=== PATIENT | female | born 1985 | race Caucasian/White ===

== ENCOUNTER 2016-08-23 09:54 | Emergency (ER) | payer BC, OTHER ==
[2016-08-23 09:59] VITALS: BP 122/77
[2016-08-23] MEDS ORDERED: Tenofovir/Emtricitabine(*) TAB PO ONE (10:57)
[2016-08-23] MEDS ORDERED: Raltegravir* 400 MG TAB PO ONE (10:57)
--- NOTE | 2016-08-23 11:20 | ED ---
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 She was double gloved and working with "pop off" needles when one of the needles penetrated her gloves and abraided her left middle finger. She poured Betadine over the finger and then scrubbed the digit after the surgery was complete. The patient is known Hep C+ and is an IV drug user. The patient's tetanus is up to date and she did not see blood in her glove from the incident. - History of Current Complaint Chief Complaint: EDExposureBodyFluid Stated Complaint: NEEDLE STICK Time Seen by Provider: 08/23/16 10:11 Date of Incident: 08/23/16 Job Performing at Time of Incident: O.R. scrub Mechanism of Injury: solid needle abrasion Needlestick: Solid Needle Blood on Needle: Yes Depth of Needlestick: Scratch Depth: superficial Bleeding at Site: No Body Fluid Exposure: Blood Treatment BRICK SETTER: Cleaned Wound - Source Information HIV: Unknown Hepatitis: Yes - Risk Factors Needlestick Risk Factor: Low Risk: Superficial Scratch - Other Discussed Post-Exposure prophylaxis (PEP) for HIV: Accepted Discussed PEP for Hepatitis-B: Declined Serologic Testing (HIV/HBV) Declined by Patient: No (Must be retained for 90 days, if drawn) PMH/Surg Hx/FS Hx/Imm Hx Previously Healthy: Yes Endocrine/Hematology History: Denies: Hx Diabetes, Hx Thyroid Disease Cardiovascular History: Denies: Hx Hypertension Respiratory History: Denies: Hx Asthma, Hx Chronic Obstructive Pulmonary Disease (COPD) GI History: Denies: Hx Ulcer - Surgical History Surgery Procedure, Year, and Place: gallbladder. tonisils. left knee arthroscopy x2 Infectious Disease History: No Infectious Disease History: Denies: Hx Clostridium Difficile, Hx Hepatitis, Hx Human Immunodeficiency Virus (HIV), Hx of Known/Suspected MRSA, Hx Shingles, Hx Tuberculosis, Hx Known/ Suspected VRE, Hx Known/Suspected VRSA, History Other Infectious Disease, Traveled Outside the [place] in Last 30 Days - Family History Known Family History: Positive: Diabetes - Type 1 and 2 Negative: Cardiac Disease, Hypertension - Social History Occupation: Employed Full-time Lives: With Family Alcohol Use: Weekly Alcohol Amount: 2-3x's weekly Substance Use Type: Reports: None Smoking Status (MU): Never Smoked Tobacco Have You Smoked in the Last Year: No Review of Systems Positive: Other - superficial abrasion to left middle finger All Other Systems Reviewed And Are Negative: Yes Physical Exam Triage Information Reviewed: Yes Vital Signs On Initial Exam: Initial Vitals Temp Pulse Resp BP Pulse Ox 98.5 F 72 20 122/77 98 08/23/16 09:56 08/23/16 09:56 08/23/16 09:56 08/23/16 09:56 08/23/16 09:56 Vital Signs Reviewed: Yes Appearance: Positive: Well-Appearing, No Pain Distress, Well-Nourished Skin: Positive: Warm, Skin Color Reflects Adequate Perfusion, Dry, Soft, Other - superficial abrasion to dorsum of left middle finger at base of nailbed Head/Face: Positive: Normal Head/Face Inspection Eyes: Positive: EOMI, NATALIA, Conjunctiva Clear ENT: Positive: Hearing grossly normal Respiratory/Lung Sounds: Positive: Breath Sounds Present Cardiovascular: Positive: RRR Musculoskeletal: Positive: Strength/ROM Intact. Negative: Edema Left, Edema Right Neurological: Positive: Sensory/Motor Intact, Alert, Oriented to Person Place, Time, NV Bundle Intact Distally, Normal Gait Psychiatric: Positive: Affect/Mood Appropriate AVPU Assessment: Alert Diagnostics - Vital Signs Vital Signs Temp Pulse Resp BP Pulse Ox 08/23/16 09:56 98.5 F 72 20 122/77 98 - Laboratory Lab Statement: Any lab studies that have been ordered have been reviewed, and results considered in the medical decision making process. Needlestick Course/Dx - Diagnoses Provider Diagnoses: Employee exposure to body fluids Discharge - Discharge Plan Condition: Stable Disposition: HOME Prescriptions: Raltegravir* [Isentress*] 400 mg PO BID #42 tab Tenofovir/Emtricitabine(*) [Truvada*] 1 tab PO DAILY #21 tab Patient Education Materials: Postexposure Prophylaxis (ED), Raltegravir (By mouth), Emtricitabine/Tenofovir (By mouth) Referrals: [facility] [Outside] Additional Instructions: Please call Marya Coats at [phone] for employee health guidance. Your blood work should be back in two days. If you do not hear from the emergency department, please call for lab results. Take your medication as prescribed.
[2016-08-23 11:35] LABS: Hematocrit 40 % (35-47); Hemoglobin 13.5 g/dl (12.0-16.0); Mean Corpuscular HGB Conc 34 g/dl (31-36); Mean Corpuscular Hemoglobin 30 pg (27-31); Mean Corpuscular Volume 88 fL (80-97); Mean Platelet Volume 8 um3 (7.4-10.4); Red Blood Count 4.55 10^6/ul (4.0-5.4); Red Cell Distribution Width 13 % (10.5-15); White Blood Count 10.6 10^3/ul (3.5-10.8)
[2016-08-23 11:51] LABS: ALT 15 U/L (7-52); AST 20 U/L (13-39); Albumin 4.6 g/dL (3.2-5.2); Alkaline Phosphatase 46 U/L (34-104); Anion Gap 7 mmol/L (2-11); BUN/Creatinine Ratio 14.8 (8-20); Blood Urea Nitrogen 12 mg/dL (6-24); CO2 Carbon Dioxide 27 mmol/L (22-32); Chloride 103 mmol/L (101-111); EGFR African American 107.5 (>60); EGFR Non-African American 83.6 (>60); Glucose 93 mg/dL (70-100); Potassium 3.8 mmol/L (3.5-5.0); Sodium 137 mmol/L (133-145); Total Protein 7.6 g/dL (6.4-8.9)
[2016-08-23 12:12] LABS: Rapid HIV INT CONT QC Line Present; Rapid HIV Kit Lot# F209005
== END 2016-08-23 11:30 | disposition home or self-care (01) ==
LOC: ED 09:54
DX: S60.413A Abrasion of left middle finger, initial encounter (principal); Z77.21 Contact with and (suspected) exposure to potentially hazardous body fluids; W46.1XXA Contact with contaminated hypodermic needle, initial encounter; Y93.9 Activity, unspecified; Y92.234 Operating room of hospital as the place of occurrence of the external cause
CPT/HCPCS: 36415; 80053; 84702; 85025; 86703; 86706; 86803; 87340; 99284

== ENCOUNTER 2016-12-22 11:43 | Emergency (ER) | payer BC ==
[2016-12-22 11:48] VITALS: BP 121/70
--- NOTE | 2016-12-22 12:35 | UC ---
Respiratory Complaint HPI - HPI Summary HPI Summary: TAKES ALBUTEROL FOR ASTHMA, HAS BAD SEVERAL DAYS OF COUGH, WHICH IS TRIGGERING ASTHMA. INHALER IS NOT WORKING, HAS BAD WHEEZING BOUT THIS MORNING. - History of Current Complaint Hx Obtained From: Patient Hx Last Menstrual Period: 11/18/16 Onset/Duration: Gradual Onset, Lasting Days, Worse Since - THIS AM Severity Initially: Mild Severity Currently: Mild Pain Intensity: 0 Pain Scale Used: 0-10 Numeric Character: Cough: Nonproductive Associated Signs And Symptoms: Positive: Wheezing, URI. Negative: Fever, Chills , Calf Pain, Calf Swelling, Nasal Congestion, Hoarseness, Sinus Discomfort - Risk Factors Pulmonary Embolism Risk Factors: Negative Cardiac Risk Factors: Negative Pseudomonas Risk Factors: Negative Tuberculosis Risk Factors: Negative <Bebeto Costa - Last Filed: 12/22/16 12:30> <Kaykay Nation - Last Filed: 12/22/16 12:41> - History of Current Complaint Chief Complaint: UCRespiratory Stated Complaint: SOB Time Seen by Provider: 12/22/16 12:06 - Allergies/Home Medications Allergies/Adverse Reactions: Allergies Allergy/AdvReac Type Severity Reaction Status Date / Time No Known Allergies Allergy Verified 05/01/16 14:19 PMH/Surg Hx/FS Hx/Imm Hx Previously Healthy: Yes - Surgical History Surgical History: None Surgery Procedure, Year, and Place: gallbladder. tonisils. left knee arthroscopy x2 - Family History Known Family History: Positive: Diabetes - Type 1 and 2 Negative: Cardiac Disease, Hypertension - Social History Alcohol Use: Weekly Alcohol Amount: 2-3x's weekly Substance Use Type: None Smoking Status (MU): Never Smoked Tobacco Have You Smoked in the Last Year: No Household Exposure Type: Cigarettes - Immunization History Most Recent Influenza Vaccination: 2016 Most Recent Tetanus Shot: up to date Most Recent Pneumonia Vaccination: never <Bebeto Costa - Last Filed: 12/22/16 12:30> Review of Systems Constitutional: Negative Skin: Negative Eyes: Negative ENT: Negative Respiratory: Cough Cardiovascular: Negative Gastrointestinal: Negative Genitourinary: Negative Motor: Negative Neurovascular: Negative Musculoskeletal: Negative Neurological: Negative Psychological: Negative All Other Systems Reviewed And Are Negative: Yes <Bebeto Costa - Last Filed: 12/22/16 12:30> Physical Exam Triage Information Reviewed: Yes Appearance: Well-Appearing, No Pain Distress, Well-Nourished Vital Signs: Initial Vital Signs Temp 98 F 12/22/16 11:45 Pulse 71 12/22/16 11:45 Resp 18 12/22/16 11:45 BP 121/70 12/22/16 11:45 Pulse Ox 100 12/22/16 11:45 Vital Signs Reviewed: Yes Eye Exam: Normal ENT Exam: Normal ENT: Positive: Normal ENT inspection, Hearing grossly normal Dental Exam: Normal Neck exam: Normal Neck: Positive: Supple, Nontender, No Lymphadenopathy Respiratory Exam: Other - COUGH Respiratory: Positive: Chest non-tender, Lungs clear, Normal breath sounds, No respiratory distress, No accessory muscle use. Negative: Wheezing - NO WHEEZING AUSCULTATED DURING CLINICAL EXAM Cardiovascular Exam: Normal Cardiovascular: Positive: RRR, No Murmur, Pulses Normal, Brisk Capillary Refill Abdominal Exam: Normal Musculoskeletal Exam: Normal Neurological Exam: Normal Psychological Exam: Normal Skin Exam: Normal <Bebeto Costa - Last Filed: 12/22/16 12:30> Vital Signs: Initial Vital Signs Temp 98 F 12/22/16 11:45 Pulse 71 12/22/16 11:45 Resp 18 12/22/16 11:45 BP 121/70 12/22/16 11:45 Pulse Ox 100 12/22/16 11:45 <Kaykay Nation - Last Filed: 12/22/16 12:41> Diagnostic Evaluation - Laboratory O2 Sat by Pulse Oximetry: 100 <Bebeto Costa - Last Filed: 12/22/16 12:30> Respiratory Course/Dx - Differential Dx/Diagnosis Differential Diagnosis/HQI/PQRI: Bronchitis, Sinusitis, Tuberculosis Provider Diagnoses: BRONCHITIS WITH BRONCHOSPASM <Bebeto Costa - Last Filed: 12/22/16 12:30> Discharge <Bebeto Costa - Last Filed: 12/22/16 12:30> <Kaykay Nation - Last Filed: 12/22/16 12:41> - Discharge Plan Condition: Stable Disposition: HOME Prescriptions: predniSONE TAB* [Deltasone TAB*] 10 mg PO DAILY #28 tab Patient Education Materials: Acute Bronchitis (ED), Bronchospasm (ED) Referrals: [facility] [Outside] No Primary Care Phys,NOPCP [Primary Care Provider] - Attestation Statement User Type: Provider - I was available for consult. This patient was seen by the SARAH. The patient was not presented to, seen by, or examined by me. -Malou <Kaykay Nation - Last Filed: 12/22/16 12:41>
== END 2016-12-22 12:23 | disposition home or self-care (01) ==
LOC: UCEAST 11:43
DX: J20.9 Acute bronchitis, unspecified (principal); Z90.49 Acquired absence of other specified parts of digestive tract; Z77.22 Contact with and (suspected) exposure to environmental tobacco smoke (acute) (chronic)
CPT/HCPCS: 99212; G0463

== ENCOUNTER 2017-02-06 13:56 | Emergency (ER) | payer BC ==
[2017-02-06 14:49] VITALS: BP 127/71
--- NOTE | 2017-02-06 15:01 | UC ---
Skin Complaint HPI - HPI Summary HPI Summary: 31 y/o female with rash x 2 days after being in a hot tub. no recent travel, no new meds/ soaps/ exposures. no other s/s. c/o painful, raised rash over abdomen/ legs. follicular pattern, no fever, chills, ACOSTA. pt has had symptoms in past after being in hot tub >1 year ago, no recent abx. has tried topical antibacterial meds- no relief. - History of Current Complaint Hx Obtained From: Patient Hx Last Menstrual Period: ~01/18/17 ?: No Onset/Duration: Sudden Onset Skin Exposure Onset/Duration: Days Ago - 2 days Onset Severity: Mild Current Severity: Moderate Location: Diffuse - legs, abdomen/ back Character: Pain, Redness, Raised, Painful Aggravating: Clothing Associated Signs & Symptoms: Positive: Rash, Tenderness <Veena Arroyo - Last Filed: 02/06/17 15:05> <Kaykay Nation - Last Filed: 02/06/17 16:12> - History of Current Complaint Chief Complaint: UCRash Time Seen by Provider: 02/06/17 14:49 Stated Complaint: SKIN COMPLAINT - Allergy/Home Medications Allergies/Adverse Reactions: Allergies Allergy/AdvReac Type Severity Reaction Status Date / Time No Known Allergies Allergy Verified 02/06/17 14:45 Home Medications: Home Medications Esomeprazole(NF) [Nexium(NF)] 40 mg PO QAM 02/06/17 [History Confirmed 02/06/17] Ranitidine TAB (NF) [Zantac TAB (NF)] 150 mg PO QAM 02/06/17 [History Confirmed 02/06/17] Review of Systems Skin: Rash All Other Systems Reviewed And Are Negative: Yes <Veena Arroyo - Last Filed: 02/06/17 15:05> PMH/Surg Hx/FS Hx/Imm Hx Previously Healthy: Yes - Surgical History Surgical History: Yes Surgery Procedure, Year, and Place: gallbladder. tonisils. left knee arthroscopy x2 - Family History Known Family History: Positive: Diabetes - Type 1 and 2 Negative: Cardiac Disease, Hypertension - Social History Alcohol Use: Weekly Alcohol Amount: 2-3x's weekly Substance Use Type: None Smoking Status (MU): Never Smoked Tobacco Have You Smoked in the Last Year: No Household Exposure Type: Cigarettes - Immunization History Most Recent Influenza Vaccination: 2015 Most Recent Tetanus Shot: up to date Most Recent Pneumonia Vaccination: never <CruzVeena - Last Filed: 02/06/17 15:05> Physical Exam Triage Information Reviewed: Yes Appearance: Well-Appearing, No Pain Distress, Well-Nourished Vital Signs: Initial Vital Signs Temp 98.7 F 02/06/17 14:42 Pulse 68 02/06/17 14:42 Resp 16 02/06/17 14:42 BP 127/71 02/06/17 14:42 Pulse Ox 100 02/06/17 14:42 Vital Signs Reviewed: Yes Skin: Positive: rashes - raised papules in a follicular pattern with erythema over abdomen, back, legs. tender to touch, no drainge noted. no burrowing/ bites noted. <Veena Arroyo - Last Filed: 02/06/17 15:05> Vital Signs: Initial Vital Signs Temp 98.7 F 02/06/17 14:42 Pulse 68 02/06/17 14:42 Resp 16 02/06/17 14:42 BP 127/71 02/06/17 14:42 Pulse Ox 100 02/06/17 14:42 <Kaykay Nation - Last Filed: 02/06/17 16:12> Course/Dx - Course Course Of Treatment: folliculitis refractory to OTC topical antibiotic medication. ABX given, continue topical antibiotics, avoid hottubs, return with worsening symptoms. - Differential Diagnoses - Skin Complaint Differential Diagnoses: Cellulitis, Contact Dermatitis, Drug Rash, Eczema - Diagnoses Provider Diagnoses: folliculitis bacterical. <Veena Arroyo - Last Filed: 02/06/17 15:05> Discharge <Veena Arroyo - Last Filed: 02/06/17 15:05> <Kaykay Nation - Last Filed: 02/06/17 16:12> - Discharge Plan Condition: Good Disposition: HOME Prescriptions: Cephalexin CAP* [Keflex 500 CAP*] 500 mg PO QID #40 cap Fluconazole 150 MG (NF) [Diflucan 150 mg (NF)] 150 mg PO ONCE #1 tab Patient Education Materials: Folliculitis (ED) Referrals: No Primary Care Phys,NOPCP [Medical Doctor] - Additional Instructions: - kelfex as prescribed for folliculitis - avoid hot tubs - diflucan as needed for yeast infection - follow up within 2-3 days if no improvement - avoid hydrocortisone creams Attestation Statement User Type: Provider - I was available for consult. This patient was seen by the SARAH. The patient was not presented to, seen by, or examined by me. -Malou <Kaykay Nation - Last Filed: 02/06/17 16:12>
== END 2017-02-06 15:05 | disposition home or self-care (01) ==
LOC: UCCORT 13:56
DX: L73.8 Other specified follicular disorders (principal); Z90.49 Acquired absence of other specified parts of digestive tract; Z77.22 Contact with and (suspected) exposure to environmental tobacco smoke (acute) (chronic)
CPT/HCPCS: 99212; G0463

== ENCOUNTER 2017-10-11 07:05 | Emergency (ER) | payer BC, OTHER ==
[2017-10-11 07:28] VITALS: BP 117/69
--- NOTE | 2017-10-11 07:39 | UC ---
Respiratory Complaint HPI - HPI Summary HPI Summary: 31 yo femal ill>1 week sinus congestion cough now wheezing sore throat uvula swollen today - History of Current Complaint Chief Complaint: UCRespiratory Stated Complaint: SORE THROAT Time Seen by Provider: 10/11/17 07:31 Hx Obtained From: Patient Hx Last Menstrual Period: 09/13/17 Onset/Duration: Gradual Onset, Lasting Days Timing: Constant Severity Initially: Mild Severity Currently: Moderate Pain Intensity: 7 Pain Scale Used: 0-10 Numeric Character: Cough: Nonproductive Aggravating Factors: Nothing Associated Signs And Symptoms: Positive: Fever, Wheezing, Nasal Congestion, Sinus Discomfort - Allergies/Home Medications Allergies/Adverse Reactions: Allergies Allergy/AdvReac Type Severity Reaction Status Date / Time seasonal allergies Allergy Unknown Unknown Uncoded 10/11/17 07:17 Reaction Details Home Medications: Home Medications Acetaminophen [Tylenol Extra Strength] 1,000 mg PO PRN 10/11/17 [History] Ibuprofen TAB* [Advil TAB*] 1,000 mg PO Q6H PRN 10/11/17 [History Confirmed 06/18] PMH/Surg Hx/FS Hx/Imm Hx Previously Healthy: Yes Respiratory History: Asthma - Surgical History Surgical History: Yes Surgery Procedure, Year, and Place: gallbladder. tonisils. left knee arthroscopy x2. DENTAL SURGERY. UPPER ENDOSCOPY TWICE - Family History Known Family History: Positive: Diabetes - Type 1 and 2, Respiratory Disease Negative: Cardiac Disease, Hypertension - Social History Alcohol Use: Rare Alcohol Amount: 2-3x's weekly Substance Use Type: None Smoking Status (MU): Never Smoked Tobacco Have You Smoked in the Last Year: No Household Exposure Type: Cigarettes - Immunization History Most Recent Influenza Vaccination: 2016 Most Recent Tetanus Shot: up to date Most Recent Pneumonia Vaccination: never Review of Systems Constitutional: Fever, Chills Skin: Negative Eyes: Negative ENT: Sore Throat, Ear Ache, Nasal Discharge, Sinus Congestion Respiratory: Cough Cardiovascular: Negative Gastrointestinal: Negative Genitourinary: Negative Motor: Negative Neurovascular: Negative Musculoskeletal: Negative Neurological: Negative Psychological: Negative Is Patient Immunocompromised?: No All Other Systems Reviewed And Are Negative: Yes Physical Exam Triage Information Reviewed: Yes Appearance: Well-Appearing, No Pain Distress, Well-Nourished Vital Signs: Initial Vital Signs Temp 98.2 F 10/11/17 07:20 Pulse 62 10/11/17 07:20 Resp 24 10/11/17 07:20 BP 117/69 10/11/17 07:20 Pulse Ox 98 10/11/17 07:20 Vital Signs Reviewed: Yes Eyes: Positive: Conjunctiva Clear ENT: Positive: Hearing grossly normal, Pharyngeal erythema, Nasal congestion, TMs normal, Hoarse voice, Uvula midline - edematous. Negative: Trismus, Muffled voice Neck: Positive: Supple, Nontender, No Lymphadenopathy Respiratory: Positive: Lungs clear, Normal breath sounds, No respiratory distress, No accessory muscle use Cardiovascular: Positive: RRR, No Murmur Neurological: Positive: Alert Psychological Exam: Normal Skin Exam: Normal UC Diagnostic Evaluation - Laboratory O2 Sat by Pulse Oximetry: 98 Respiratory Course/Dx - Course Course Of Treatment: strep (-) - Differential Dx/Diagnosis Provider Diagnoses: sinusitis. uvular edema. wheezing by history Discharge - Sign-Out/Discharge Documenting (check all that apply): Discharge - Discharge Plan Condition: Stable Disposition: HOME Prescriptions: Albuterol HFA INHALER* [Ventolin HFA Inhaler*] 2 puff INH QID #1 mdi Amoxicillin PO (*) [Amoxicillin 875 MG (*)] 875 mg PO BID #20 tab predniSONE [Deltasone] 40 mg PO DAILY #10 tab Patient Education Materials: Sinusitis (ED), Bronchospasm (ED) Referrals: No Primary Care Phys,NOPCP [Primary Care Provider] - Additional Instructions: recheck for new or worsening symptoms strep (-) recheck in 4-6 days if not better - Billing Disposition and Condition Condition: STABLE Disposition: HOME
== END 2017-10-11 07:56 | disposition home or self-care (01) ==
LOC: UCCORT 07:05
DX: J32.9 Chronic sinusitis, unspecified (principal); J39.8 Other specified diseases of upper respiratory tract; R06.2 Wheezing
CPT/HCPCS: 87651; 99212; G0463

== ENCOUNTER 2018-02-08 19:10 | Emergency (ER) | payer BC ==
[2018-02-08 19:55] VITALS: BP 140/79
--- NOTE | 2018-02-08 21:02 | UC ---
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 today woke with ear pressure and pain as well as dizziness. sinus pressure has gotten worse " -she had sinsuitis in 10/17 treated completly w/ amox 875mgs bid x 10d. sues cetirizine and flonase daily w/ saline lavage. dx'd w/ asthma 2 yrs ago. never required steroids or steroid inhaler. uses albuterol. gerd contributes to asthma. - History of Current Complaint Chief Complaint: UCGeneralIllness Stated Complaint: SINUSES Time Seen by Provider: 02/08/18 20:59 Hx Last Menstrual Period: 01/25/18 Pain Intensity: 6 - Allergies/Home Medications Allergies/Adverse Reactions: Allergies Allergy/AdvReac Type Severity Reaction Status Date / Time seasonal allergies Allergy Unknown Unknown Uncoded 02/08/18 20:18 Reaction Details Home Medications: Home Medications Cetirizine HCl [Zyrtec] 10 mg PO DAILY 02/08/18 [History Confirmed 02/08/18] Fluticasone NASAL SPRAY 50MCG* [Flonase NASAL SPRAY 50MCG*] 1 spray INH DAILY [History Confirmed 02/08/18] Guaifenesin/Dextromethorphan [Mucinex Dm ER 600-30 mg Tablet] 1 each PO Q12HR [History Confirmed 02/08/18] Vitamin B Complex CAP* [B Complex CAP*] 1 each PO DAILY 02/08/18 [History Confirmed 02/08/18] PMH/Surg Hx/FS Hx/Imm Hx Previously Healthy: Yes Respiratory History: Asthma GI/ History: Gastroesophageal Reflux - Surgical History Surgical History: Yes Surgery Procedure, Year, and Place: gallbladder. tonisils. left knee arthroscopy x2. DENTAL SURGERY. UPPER ENDOSCOPY TWICE - Family History Known Family History: Positive: Diabetes - Type 1 and 2, Respiratory Disease - + asthma dad and GM Negative: Cardiac Disease, Hypertension - Social History Alcohol Use: Occasionally Alcohol Amount: 2-3x's weekly Substance Use Type: None Smoking Status (MU): Never Smoked Tobacco Have You Smoked in the Last Year: No Household Exposure Type: Cigarettes - Immunization History Most Recent Influenza Vaccination: 2016 Most Recent Tetanus Shot: up to date Most Recent Pneumonia Vaccination: never Review of Systems Constitutional: Fatigue Skin: Negative Eyes: Negative ENT: Sinus Congestion, Sinus Pain/Tenderness Respiratory: Cough Cardiovascular: Negative Gastrointestinal: Negative Genitourinary: Negative Motor: Negative Neurovascular: Negative Musculoskeletal: Negative Neurological: Negative Psychological: Negative Is Patient Immunocompromised?: No All Other Systems Reviewed And Are Negative: Yes Physical Exam Triage Information Reviewed: Yes Appearance: Well-Appearing, No Pain Distress, Well-Nourished Vital Signs: Initial Vital Signs Temp 98.3 F 02/08/18 19:49 Pulse 75 02/08/18 19:49 Resp 16 02/08/18 19:49 BP 140/79 02/08/18 19:49 Pulse Ox 100 02/08/18 19:49 Vital Signs Reviewed: Yes Eye Exam: Normal Eyes: Positive: Conjunctiva Clear ENT: Positive: Pharyngeal erythema - mild w/ PND, TMs normal, Sinus tenderness. Negative: Tonsillar swelling, Tonsillar exudate Neck exam: Normal Neck: Positive: Supple, Nontender, No Lymphadenopathy Respiratory: Positive: Lungs clear, No respiratory distress, No accessory muscle use, Decreased breath sounds - mild. Negative: Crackles, Rhonchi, Stridor, Wheezing Cardiovascular Exam: Normal Cardiovascular: Positive: RRR Abdomen Description: Positive: Nontender, Soft Musculoskeletal Exam: Normal Neurological Exam: Normal Psychological Exam: Normal Throat Pain/Nasal Course/Dx - Course Course Of Treatment: -amox 875mgs po bid x10d. -cont probiotic. -cont cetirizine, flonase and saline lavage. -alb prn. -add symbicort 80 mcg 2 p bid until sx resolved. risne mouth after - Differential Dx/Diagnosis Differential Diagnosis/HQI/PQRI: Sinusitis, Tonsillitis, URI Provider Diagnoses: sinusitis, asthma Discharge - Sign-Out/Discharge Documenting (check all that apply): Patient Departure - Discharge Plan Condition: Stable Disposition: HOME Prescriptions: Amoxicillin PO (*) [Amoxicillin 875 MG (*)] 875 mg PO BID #20 tab Budesonide/Formote 80/4.5(NF) [Symbicort 80/4.5 (NF)] 2 puff INH BID 14 Days #1 mdi Patient Education Materials: Asthma (DC), Sinusitis (ED) Referrals: No Primary Care Phys,NOPCP [Primary Care Provider] - Additional Instructions: -Make sure to take a probiotic daily while on antibiotics to help prevent a potential complication of antibiotic use called c diff. Some well known brands that can be found OTC are florastor, align and colon health. Make sure to complete the entire prescription unless advised otherwise by your health care provider. - - Billing Disposition and Condition Condition: STABLE Disposition: Home
== END 2018-02-08 21:22 | disposition home or self-care (01) ==
LOC: UCCORT 19:10
DX: J32.9 Chronic sinusitis, unspecified (principal); J45.909 Unspecified asthma, uncomplicated
CPT/HCPCS: 99212; G0463

== ENCOUNTER 2018-05-24 19:19 | Emergency (ER) | payer BC ==
--- NOTE | 2018-05-24 19:42 | UC ---
Respiratory Complaint HPI - HPI Summary HPI Summary: Unwell for the past 6 days, with initial vomiting and diarrhea after eating sushi prepared at home. No one else partaking was ill, assumed was related to volume and type of food. One episode of emesis, followed by about 4 episodes of diarrhea without blood or mucous associated. Had abdominal cramping and took a single dose of imodium. [place] cramping and mildly unwell on 05/20, but overall thought improving. Morning of 05/21 had temp of 103 with headache, with gradual onset of sore throat. [place] progressively unwell, with worsening sore throat and development of cough. Clinical diagnosis of strep made yesterday based on purulent pharyngitis (past tonsillectomy), and began use of cefdinir 300mg twice daily. Has had 3 doses, with continued throat pain, harsh cough, malaise and dysphagia. Voiding well. No stool passed x several days. - History of Current Complaint Stated Complaint: SORE THROAT, COUGH, CONGESTION Time Seen by Provider: 05/24/18 19:39 Hx Obtained From: Patient Hx Last Menstrual Period: 01/25/18 ?: No Onset/Duration: Gradual Onset, Lasting Days Timing: Constant - sore throat and laryngeal discomfort are constant. Severity Initially: Moderate Severity Currently: Moderate Character: Cough: Nonproductive Aggravating Factors: Deep Breaths, Recumbent Position Alleviating Factors: Nothing Associated Signs And Symptoms: Positive: Fever, Sinus Discomfort - Risk Factors Pulmonary Embolism Risk Factors: Negative Cardiac Risk Factors: Negative Pseudomonas Risk Factors: Negative Tuberculosis Risk Factors: Negative - Allergies/Home Medications Allergies/Adverse Reactions: Allergies Allergy/AdvReac Type Severity Reaction Status Date / Time seasonal allergies Allergy Unknown Unknown Uncoded 05/24/18 19:42 Reaction Details Home Medications: Home Medications Budesonide/Formote 80/4.5(NF) [Symbicort 80/4.5 (NF)] 2 puff INH BID PRN [History] Cefdinir [Cefdinir 300 MG CAP] 300 mg PO BID 05/24/18 [History Confirmed ] Escitalopram (NF) [Lexapro 5 mg (NF)] 5 mg PO BEDTIME 05/24/18 [History Confirmed 05/24/18] LevoCETirizine TAB (NF) [Xyzal TAB (NF)] 5 mg PO DAILY 05/24/18 [History Confirmed 05/24/18] PMH/Surg Hx/FS Hx/Imm Hx Respiratory History: Asthma GI/ History: Gastroesophageal Reflux - Surgical History Surgical History: Yes Surgery Procedure, Year, and Place: gallbladder. tonisils. left knee arthroscopy x2. DENTAL SURGERY. UPPER ENDOSCOPY TWICE - Family History Known Family History: Positive: Diabetes - Type 1 and 2, Respiratory Disease - + asthma dad and GM Negative: Cardiac Disease, Hypertension - Social History Occupation: Employed Full-time Lives: Alone Alcohol Use: Occasionally Alcohol Amount: 2-3x's weekly Substance Use Type: None Smoking Status (MU): Never Smoked Tobacco Have You Smoked in the Last Year: No Household Exposure Type: Cigarettes - Immunization History Most Recent Influenza Vaccination: 2016 Most Recent Tetanus Shot: up to date Most Recent Pneumonia Vaccination: never Review of Systems All Other Systems Reviewed And Are Negative: Yes Constitutional: Positive: Fatigue Skin: Positive: Negative Eyes: Positive: Negative ENT: Positive: Sore Throat, Ear Ache, Sinus Congestion Respiratory: Positive: Cough Cardiovascular: Positive: Negative Gastrointestinal: Positive: Other - decrease in stool passage post imodium, but oral intake has been low. Genitourinary: Positive: Negative Motor: Positive: Negative Neurovascular: Positive: Negative Musculoskeletal: Positive: Negative Neurological: Positive: Headache Psychological: Positive: Negative Is Patient Immunocompromised?: No Physical Exam Triage Information Reviewed: Yes Appearance: Ill-Appearing - looks pale, fatigued and unwell, Pain Distress - mild to moderate. ENT: Positive: Pharyngeal erythema - Past tonsillectomy, but has bilateral swelling of the tonsillar bed with exudate. Soft palate erythematous., TM dull - bilateral serous fluid Neck: Positive: Supple, Nontender, Enlarged Nodes @ - tonsillar nodes enlarged. Respiratory: Positive: Lungs clear, Normal breath sounds, No accessory muscle use Cardiovascular: Positive: RRR, No Murmur Abdomen Description: Positive: Nontender, Soft - Mildly distended. Bowel Sounds: Positive: Present Musculoskeletal Exam: Normal Neurological: Positive: Alert, Muscle Tone Normal Psychological Exam: Normal Skin Exam: Normal Respiratory Course/Dx - Course Course Of Treatment: Clincal exam consistent with strep; pharyngeal swelling approached with injection of solumedrol. - Differential Dx/Diagnosis Differential Diagnosis/HQI/PQRI: Asthma, Laryngitis, Lower Resp Infection, Other - strep pharyngitis Provider Diagnoses: exudative pharyngitis, suspected strep Discharge - Sign-Out/Discharge Documenting (check all that apply): Patient Departure All imaging exams completed and their final reports reviewed: No Studies - Discharge Plan Condition: Stable Disposition: HOME Prescriptions: predniSONE [Prednisone 20 MG TAB] 2 tab PO DAILY WITH MEAL #10 tablet Patient Education Materials: Pharyngitis (ED) Forms: *Work Release Referrals: Aileen Naqvi NP [Primary Care Provider] - Additional Instructions: You have considerable swelling in the oral pharynx, presumed related to strep. The single dose of solumedrol is likely to be adequate to relieve this, but you have a back up prescription for oral prednisone. You need only take this if you have continues difficulty swallowing. If you have continued fatigue and swelling, I advocate off work tomorrow. You have an optional note. Your blood pressure is mildly elevated--ensure a follow up check of this within a few weeks. - Billing Disposition and Condition Condition: STABLE Disposition: Home
[2018-05-24 19:43] VITALS: BP 142/83
[2018-05-24] MEDS ORDERED: methylPREDNISolone 125 MG* 2 ML VIAL IM ONE (20:08)
== END 2018-05-24 20:55 | disposition home or self-care (01) ==
LOC: UCCORT 19:19
DX: J02.9 Acute pharyngitis, unspecified (principal); J45.909 Unspecified asthma, uncomplicated
CPT/HCPCS: 96372; 99212; G0463; J2930

== ENCOUNTER 2018-08-02 16:25 | Emergency (ER) | payer BC ==
[2018-08-02 17:09] VITALS: BP 126/68
[2018-08-02 17:19] LABS: Influenza A Molecular POSITIVE (Negative)
--- NOTE | 2018-08-02 17:29 | UC ---
FLU HPI - HPI Summary HPI Summary: 32 year old female present with nasal congestion, nasal discharge, sinus congestion, ear pain, and non-productive cough. States she has been having issues with her sinuses for a while howver symptoms have become more severe over the past 2-3 days. Denies fever, chills, chest pain, SOB, abdominal pain, nausea, or vomiting. - History of Current Complaint Chief Complaint: UCGeneralIllness Stated Complaint: SINUSES Hx Obtained From: Patient Hx Last Menstrual Period: 07/07/18 Pain Intensity: 4 - Allergy/Home Medications Allergies/Adverse Reactions: Allergies Allergy/AdvReac Type Severity Reaction Status Date / Time seasonal allergies Allergy Unknown Unknown Uncoded 05/24/18 19:42 Reaction Details Home Medications: Home Medications Ibuprofen/Pseudoephedrine HCl [Advil Cold-Sinus Liqui-Gels] 1 each PO Q8H [History Confirmed 08/02/18] Triamcinolone Acetonide [Nasal Allergy] 1 puff INH DAILY 08/02/18 [History Confirmed 08/02/18] diphenhydrAMINE HCl [Benadryl Allergy] 50 mg PO Q4H 08/02/18 [History Confirmed 08/02/18] PMH/Surg Hx/FS Hx/Imm Hx Previously Healthy: Yes Respiratory History: Asthma GI/ History: Gastroesophageal Reflux Psychological History: Depression - Surgical History Surgical History: Yes Surgery Procedure, Year, and Place: gallbladder. tonisils. left knee arthroscopy x2. DENTAL SURGERY. UPPER ENDOSCOPY TWICE - Family History Known Family History: Positive: Diabetes - Type 1 and 2, Respiratory Disease - + asthma dad and GM Negative: Cardiac Disease, Hypertension - Social History Occupation: Employed Full-time Lives: Alone Alcohol Use: Occasionally Alcohol Amount: 2-3x's weekly Substance Use Type: None Smoking Status (MU): Never Smoked Tobacco Have You Smoked in the Last Year: No Household Exposure Type: Cigarettes - Immunization History Most Recent Influenza Vaccination: 2016 Most Recent Tetanus Shot: up to date Most Recent Pneumonia Vaccination: never Review of Systems All Other Systems Reviewed And Are Negative: Yes Constitutional: Positive: Fatigue. Negative: Fever, Chills Skin: Negative: Rash Eyes: Negative: Drainage, Eye Redness ENT: Positive: Sore Throat, Ear Ache, Nasal Discharge, Sinus Congestion, Sinus Pain/Tenderness Respiratory: Positive: Cough. Negative: Shortness Of Breath Cardiovascular: Negative: Palpitations, Chest Pain Gastrointestinal: Negative: Abdominal Pain, Vomiting, Diarrhea, Nausea Genitourinary: Positive: Negative Musculoskeletal: Positive: Negative Neurological: Positive: Negative Is Patient Immunocompromised?: No Physical Exam - Summary Physical Exam Summary: GENERAL APPEARANCE: Well developed, well nourished, alert and cooperative, and appears to be in no acute distress. EYES: Conjunctiva clear. No discharge. Vision is grossly intact. EARS: External auditory canals and tympanic membranes clear, hearing grossly intact. NOSE: Moderate nasal discharge. Clear nasal drainage. THROAT: Mild pharyngeal erythema. No tonsilar inflammation, swelling, exudate, or lesions. Oral cavity normal. Teeth and gingiva in good general condition. NECK: Neck supple, non-tender without lymphadenopathy. CARDIAC: Normal S1 and S2. No S3, S4 or murmurs. Rhythm is regular. There is no peripheral edema, cyanosis or pallor. Extremities are warm and well perfused. Capillary refill is less than 2 seconds. LUNGS: Clear to auscultation without rales, rhonchi, wheezing or diminished breath sounds. ABDOMEN: Positive bowel sounds. Soft, nondistended, nontender. No guarding or rebound. No masses or hepatosplenomegally. MUSKULOSKELETAL: ROM intact to all extremities. No joint erythema or tenderness. Normal muscular development. Normal gait. SKIN: Skin normal color, texture and turgor with no lesions or eruptions. Vital Signs: Initial Vital Signs Temp 98.1 F 08/02/18 17:01 Pulse 96 08/02/18 17:01 Resp 16 08/02/18 17:01 BP 126/68 08/02/18 17:01 Pulse Ox 99 08/02/18 17:01 Diagnostics - Laboratory Diagnostic Studies Completed/Ordered: Rapid flu positive. Flu Course/Dx - Course Course Of Treatment: 32 year old female present with nasal congestion, nasal discharge, sinus congestion, ear pain, and non-productive cough. States she has been having issues with her sinuses for a while howver symptoms have become more severe over the past 2-3 days. Denies fever, chills, chest pain, SOB, abdominal pain, nausea, or vomiting. Afebrile. VSS. Exam reveals adult female in no acute distress with moderate nasal congestion, clear nasal discharged, mild pharyngeal erythema without tonsilar exudate, clear bilateral breath sounds , and a non-productive cough. Rapid flu positive for influenza A. Recommending symptomatic treatment. Anticipatory guidance and warning symptoms reviewed with patient. Verbalizes understanding and agrees with POC. - Differential Dx/Diagnosis Differential Diagnosis/HQI/PQRI: Bronchitis, Influenza, Pneumonia, Upper Respiratory Infection Provider Diagnosis: Influenza A Discharge - Sign-Out/Discharge Documenting (check all that apply): Patient Departure All imaging exams completed and their final reports reviewed: No Studies - Discharge Plan Condition: Stable Disposition: HOME Patient Education Materials: Influenza (ED) Forms: *Work Release Referrals: Aileen Naqvi THERMOMETER TESTER [Primary Care Provider] - 7 Days (If no improvement in symptoms.) Additional Instructions: Your flue test performed in the clinic today was positive for influenza A. Drink plenty of fluids to avoid dehydration especially if you are running any fever. Take over the counter acetaminophen (Tylenol) or ibuprofen (Advil, Motrin) according to directions as needed for pain or fever. Use salt water gargles several times a day if you have a sore throat. You may also use Chloraseptic spray or Cepacol lonzenges according to directions which contain a numbing medication and can provide some temporary relief from your sore throat. Follow up with your primary care provider in 7 days if symptoms persist. Seek immediate medical attention in the emergency room if you have fever greater than 100.5 F despite taking acetaminophen or ibuprofen, have chest pain , difficulty breathing, are unable to swallow, or have any worsening of symptoms. - Billing Disposition and Condition Condition: STABLE Disposition: Home
== END 2018-08-02 17:36 | disposition home or self-care (01) ==
LOC: UCCORT 16:25
DX: J10.1 Influenza due to other identified influenza virus with other respiratory manifestations (principal); Z91.09 Other allergy status, other than to drugs and biological substances
CPT/HCPCS: 99212; G0463